=== PATIENT | female | born 1985 | race Caucasian/White ===

== ENCOUNTER 2024-10-28 16:31 | Inpatient (IN) | payer OTHER ==
[~2024-10-28] VITALS: Ht 157.5 cm; Wt 85.5 kg
[2024-10-28 17:56] LABS: BASOPHILS # (AUTO) 0.1 (0.0-0.1); EOSINOPHILS # (AUTO) 0.1 (0.0-0.4); EOSINOPHILS % 0.7 % (0.0-6.0); HEMATOCRIT 34.4 % (34.2-44.1); HEMOGLOBIN 10.6 g/dL (12.0-16.0); LYMPHOCYTES # (AUTO) 2.3 (1.0-3.2); LYMPHOCYTES % 20.4 % (18.0-39.1); MEAN CORPUSCULAR HEMOGLOBIN 21.9 pg (28-32); MEAN CORPUSCULAR HGB CONC 30.8 g/dL (31-35); MEAN CORPUSCULAR VOLUME 70.9 fL (81-99); MONOCYTES % 8.9 % (4.4-11.3); NEUTROPHILS # (AUTO) 7.8 (2.1-6.9); NEUTROPHILS % 68.7 % (38.7-80.0); PLATELET COUNT 438 x10e3/uL (140-360); RED BLOOD COUNT 4.85 x10e6/uL (3.6-5.1); RED CELL DISTRIBUTION WIDTH 24.7 % (11.7-14.4); WHITE BLOOD COUNT 11.35 x10e3/uL (4.8-10.8)
[2024-10-28 18:40] LABS: ALBUMIN 4.3 g/dL (3.5-5.0); ALBUMIN/GLOBULIN RATIO 1.2 (0.8-2.0); ANION GAP 18.6 mmol/L (8-16); BILIRUBIN,TOTAL 0.4 mg/dL (0.2-1.2); CALCIUM 9.3 mg/dL (8.4-10.2); CREATININE, SERUM 0.78 mg/dL (0.57-1.11); MAGNESIUM 2.1 MG/DL (1.3-2.1); POTASSIUM 3.6 mmol/L (3.5-5.1); TOTAL PROTEIN 7.8 g/dL (6.5-8.1)
[2024-10-28] MEDS: Morphine 4mg INJECTION 4 MG/ML INJ IV STA (18:51)
[2024-10-28] MEDS: SODIUM CHLORIDE 0.9% 1000ML 1,000 ML IV STA (18:51)
[2024-10-28] MEDS: ONDANSETRON HCL INJ 2MG/ML 2ML 2 MG/ML VIAL IV STA (18:52)
[2024-10-28 18:53] VITALS: PULSE 64; RESP 18; TEMP 99.2
[2024-10-28] MEDS ORDERED: IOPAMIDOL 370 MG/ML 100 ML INFUS..BTL INJ ONE (18:54)
[2024-10-28 19:11] LABS: INR 1.03; PARTIAL THROMBOPLASTIN TIME 27.1 seconds (23.8-35.5); PROTHROMBIN TIME 14.1 seconds (11.9-14.5)
[2024-10-28 19:26] LABS: CLARITY,URINE SL CLOUDY (CLEAR); COLOR,URINE YELLOW (YELLOW); LEUKOCYTE ESTERASE ,URINE NEGATIVE (NEGATIVE); NITRITE,URINE NEGATIVE (NEGATIVE); PH,URINE 5.5 (5 - 7)
[2024-10-28 19:27] LABS: BILIRUBIN,URINE SMALL (NEGATIVE); GLUCOSE, URINE NEGATIVE (NEGATIVE); KETONES,URINE 2+ (NEGATIVE); PROTEIN,URINE DIPSTICK 1+ (NEGATIVE); URINE UROBILINOGEN 0.2 mg/dL (0.2 - 1)
[2024-10-28 19:42] LABS: AMORPHOUS SEDIMENT,URINE MODERATE; BACTERIA,URINE FEW /HPF; EPITHELIAL CELLS,URINE MODERATE /LPF; RBC,URINE 0-5 /HPF (0-5)
[2024-10-28] MEDS: SODIUM CHLORIDE 0.9% 1000ML 1,000 ML IV SCH (21:38)
[2024-10-28 22:07] VITALS: BP 147/77; PULSE 65; RESP 16; TEMP 97.9; O2SAT 100
[2024-10-28] MEDS ORDERED: PREGABALIN75 MG PO (22:59)
[2024-10-28] MEDS ORDERED: GABAPENTIN100 MG PO (22:59)
[2024-10-28] MEDS ORDERED: PANTOPRAZOLE SO40 MG PO (22:59)
[2024-10-28] MEDS ORDERED: TIZANIDINE HCL4 MG PO (22:59)
[2024-10-28] MEDS ORDERED: KETOROLAC TROME10 MG PO (22:59)
[2024-10-28] MEDS ORDERED: SUCRALFATE1 GM PO (22:59)
[2024-10-28] MEDS ORDERED: AMBIEN10 MG PO (22:59)
[2024-10-28] MEDS ORDERED: ONDANSETRON ODT4 MG PO (22:59)
[2024-10-28] MEDS ORDERED: ACETAMINOPHEN/COD PO (22:59)
[2024-10-28] MEDS ORDERED: HYDROCODON-ACE1 EA12 PO (22:59)
[2024-10-28 23:05] VITALS: BP 147/77; PULSE 65; RESP 16; TEMP 97.9; O2SAT 100
[2024-10-28 23:10] VITALS: BP 147/77; PULSE 65; RESP 16; TEMP 97.9; O2SAT 100
[2024-10-28] MEDS: ONDANSETRON HCL INJ 2MG/ML 2ML 2 MG/ML VIAL IV PRN (23:18)
[2024-10-28] MEDS: Morphine 4mg INJECTION 4 MG/ML INJ IV PRN (23:19)
[2024-10-29 05:29] VITALS: BP 128/73; PULSE 51; RESP 18; TEMP 98.1; O2SAT 97
[2024-10-29 06:18] LABS: BASOPHILS # (AUTO) 0.1 (0.0-0.1); BASOPHILS % 1.7 % (0.0-1.0); EOSINOPHILS # (AUTO) 0.4 (0.0-0.4); EOSINOPHILS % 5.1 % (0.0-6.0); HEMATOCRIT 32.1 % (34.2-44.1); HEMOGLOBIN 9.7 g/dL (12.0-16.0); LYMPHOCYTES # (AUTO) 1.7 (1.0-3.2); LYMPHOCYTES % 20.8 % (18.0-39.1); MEAN CORPUSCULAR HEMOGLOBIN 22.5 pg (28-32); MEAN CORPUSCULAR HGB CONC 30.2 g/dL (31-35); MEAN CORPUSCULAR VOLUME 74.3 fL (81-99); MONOCYTES # (AUTO) 0.8 (0.2-0.8); MONOCYTES % 9.5 % (4.4-11.3); NEUTROPHILS # (AUTO) 5.1 (2.1-6.9); NEUTROPHILS % 62.7 % (38.7-80.0); PLATELET COUNT 273 x10e3/uL (140-360); RED BLOOD COUNT 4.32 x10e6/uL (3.6-5.1); RED CELL DISTRIBUTION WIDTH 25.1 % (11.7-14.4); WHITE BLOOD COUNT 8.08 x10e3/uL (4.8-10.8)
[2024-10-29 06:49] LABS: ALBUMIN 3.6 g/dL (3.5-5.0); ALBUMIN/GLOBULIN RATIO 1.3 (0.8-2.0); ANION GAP 13.3 mmol/L (8-16); BILIRUBIN,TOTAL 0.3 mg/dL (0.2-1.2); CALCIUM 8.2 mg/dL (8.4-10.2); CREATININE, SERUM 0.79 mg/dL (0.57-1.11); TOTAL PROTEIN 6.4 g/dL (6.5-8.1)
[2024-10-29 06:54] LABS: POTASSIUM 3.3 mmol/L (3.5-5.1)
[2024-10-29 07:20] VITALS: BP 143/82; PULSE 56; RESP 17; TEMP 98.2; O2SAT 100
[2024-10-29 08:00] VITALS: BP 128/73; PULSE 51; RESP 18; TEMP 98.1; O2SAT 97
[2024-10-29] MEDS: METOCLOPRAMIDE HCL 10 MG/2ML VIAL IV SCH (09:56)
[2024-10-29 10:18] LABS: % IRON SATURATION 7 % (15-50); IRON 27 ug/dL (50-170); TOTAL IRON BINDING CAPACITY 385 ug/dL (261-478); TRANSFERRIN 275 mg/dL (180-382)
[2024-10-29 10:36] LABS: PLATELET ESTIMATE ADEQUATE; PLATELET MORPHOLOGY COMMENT NORMAL; RBC MORPHOLOGY COMMENT NORMAL
[2024-10-29 11:29] VITALS: BP 132/66; PULSE 56; RESP 16; TEMP 98.1; O2SAT 100
[2024-10-29] MEDS: ONDANSETRON HCL INJ 2MG/ML 2ML 2 MG/ML VIAL IV PRN (12:14)
[2024-10-29 15:22] VITALS: BP 126/73; PULSE 58; RESP 18; TEMP 97.4; O2SAT 100
[2024-10-29] MEDS: KETOROLAC TROMETHAMINE 30 MG/ML VIAL IV PRN (18:09)
[2024-10-29 20:00] VITALS: BP 136/73; PULSE 60; RESP 20; TEMP 98; O2SAT 99
[2024-10-30] VITALS (8 sets, daily range): BP systolic 135–151; BP diastolic 71–77; PULSE 52–68; RESP 15–20; TEMP 97.9–98.6; O2SAT 99–100
[2024-10-30] MEDS: MECLIZINE HCL 12.5 MG TAB PO STA (00:36)
[2024-10-30] MEDS: DICYCLOMINE HCL 20 MG TAB PO STA (00:36)
[2024-10-30 05:42] LABS: BASOPHILS # (AUTO) 0.2 (0.0-0.1); EOSINOPHILS # (AUTO) 0.5 (0.0-0.4); EOSINOPHILS % 6.7 % (0.0-6.0); HEMATOCRIT 32.7 % (34.2-44.1); HEMOGLOBIN 9.7 g/dL (12.0-16.0); LYMPHOCYTES # (AUTO) 1.6 (1.0-3.2); LYMPHOCYTES % 20.8 % (18.0-39.1); MEAN CORPUSCULAR HEMOGLOBIN 22.1 pg (28-32); MEAN CORPUSCULAR HGB CONC 29.7 g/dL (31-35); MEAN CORPUSCULAR VOLUME 74.7 fL (81-99); MONOCYTES # (AUTO) 0.7 (0.2-0.8); MONOCYTES % 8.8 % (4.4-11.3); NEUTROPHILS # (AUTO) 4.7 (2.1-6.9); NEUTROPHILS % 61.4 % (38.7-80.0); PLATELET COUNT 345 x10e3/uL (140-360); RED BLOOD COUNT 4.38 x10e6/uL (3.6-5.1); RED CELL DISTRIBUTION WIDTH 24.2 % (11.7-14.4); WHITE BLOOD COUNT 7.59 x10e3/uL (4.8-10.8)
[2024-10-30 06:23] LABS: ALBUMIN 3.8 g/dL (3.5-5.0); ALBUMIN/GLOBULIN RATIO 1.4 (0.8-2.0); ANION GAP 14.2 mmol/L (8-16); BILIRUBIN,TOTAL 0.3 mg/dL (0.2-1.2); CALCIUM 8.3 mg/dL (8.4-10.2); CREATININE, SERUM 0.76 mg/dL (0.57-1.11); POTASSIUM 3.2 mmol/L (3.5-5.1); TOTAL PROTEIN 6.6 g/dL (6.5-8.1)
[2024-10-30] MEDS: DICYCLOMINE HCL 20 MG TAB PO SCH (08:21)
[2024-10-30] MEDS: IRON SUCROSE 100 MG in SODIUM CHLORIDE 0.9% 100 ML IV SCH (10:30)
[2024-10-30 12:03] LABS: HYPOCHROMASIA MODERATE; PLATELET ESTIMATE ADEQUATE; PLATELET MORPHOLOGY COMMENT NORMAL
[2024-10-30 12:06] LABS: MICROCYTOSIS MODERATE; RBC MORPHOLOGY COMMENT ABNORMAL
[2024-10-30] MEDS: CYANOCOBALAMIN INJ 1,000 MCG/ML VIAL IM ONE ×2 (14:25→16:18)
[2024-10-30] MEDS: DONNATAL/LIDOCAINE/MAALOX 30 ML SUSP PO PRN (16:18)
[2024-10-30 20:57] LABS: WBC,FECAL (FECAL LACTOFERRIN) NEGATIVE (NEGATIVE)
[2024-10-30 21:15] LABS: CDIFF AG QUIK CHEK NEGATIVE (NEGATIVE); CDIFF TOX QUIK CHEK NEGATIVE (NEGATIVE)
[2024-10-31] VITALS (9 sets, daily range): BP systolic 120–151; BP diastolic 51–80; PULSE 60–75; RESP 18–19; TEMP 97.3–98.9; O2SAT 97–100
[2024-10-31] MEDS: SUCRALFATE 1 GM TAB PO SCH (09:31)
[2024-10-31] MEDS: CYANOCOBALAMIN INJ 1,000 MCG/ML VIAL IM SCH (09:31)
[2024-10-31 09:41] LABS: C-REACTIVE PROTEIN 3 mg/L (0-10)
[2024-11-01 06:01] LABS: BASOPHILS # (AUTO) 0.1 (0.0-0.1); BASOPHILS % 1.8 % (0.0-1.0); EOSINOPHILS # (AUTO) 0.6 (0.0-0.4); EOSINOPHILS % 7.8 % (0.0-6.0); HEMATOCRIT 33.8 % (34.2-44.1); HEMOGLOBIN 10.1 g/dL (12.0-16.0); LYMPHOCYTES # (AUTO) 1.9 (1.0-3.2); LYMPHOCYTES % 24.4 % (18.0-39.1); MEAN CORPUSCULAR HEMOGLOBIN 22.2 pg (28-32); MEAN CORPUSCULAR HGB CONC 29.9 g/dL (31-35); MEAN CORPUSCULAR VOLUME 74.3 fL (81-99); MONOCYTES # (AUTO) 0.9 (0.2-0.8); MONOCYTES % 11.3 % (4.4-11.3); NEUTROPHILS # (AUTO) 4.3 (2.1-6.9); NEUTROPHILS % 54.3 % (38.7-80.0); PLATELET COUNT 344 x10e3/uL (140-360); RED BLOOD COUNT 4.55 x10e6/uL (3.6-5.1); RED CELL DISTRIBUTION WIDTH 24.3 % (11.7-14.4); WHITE BLOOD COUNT 7.82 x10e3/uL (4.8-10.8)
[2024-11-01 06:38] LABS: ALBUMIN 3.8 g/dL (3.5-5.0); ALBUMIN/GLOBULIN RATIO 1.5 (0.8-2.0); ANION GAP 12.5 mmol/L (8-16); BILIRUBIN,TOTAL 0.2 mg/dL (0.2-1.2); CALCIUM 8.7 mg/dL (8.4-10.2); CREATININE, SERUM 0.73 mg/dL (0.57-1.11); POTASSIUM 3.5 mmol/L (3.5-5.1); TOTAL PROTEIN 6.4 g/dL (6.5-8.1)
[2024-11-01 08:43] VITALS: BP 139/71; PULSE 52; RESP 20; TEMP 98.2; O2SAT 100
[2024-11-01 09:00] VITALS: BP 139/71; PULSE 52; RESP 20; TEMP 98.2; O2SAT 100
[2024-11-01 12:27] VITALS: BP 141/73; PULSE 56; RESP 20; TEMP 98.3; O2SAT 97
[2024-11-01 15:53] VITALS: BP 122/75; PULSE 64; RESP 18; TEMP 98.1; O2SAT 99
[2024-11-01 20:00] VITALS: BP 146/84; PULSE 60; RESP 20; TEMP 98; O2SAT 96
[2024-11-02] VITALS: BP 140/95; PULSE 84; RESP 20; TEMP 98.6; O2SAT 98
[2024-11-02 04:00] VITALS: BP 153/62; PULSE 76; RESP 20; TEMP 98; O2SAT 99
[2024-11-02 07:46] VITALS: BP 138/57; PULSE 55; RESP 17; TEMP 97.9; O2SAT 98
[2024-11-02 09:00] VITALS: BP 138/57; PULSE 55; RESP 17; TEMP 97.9; O2SAT 98
[2024-11-04 08:12] LABS: ENDOMYSIAL ANTIBODIES, IGA Negative (Negative)
[2024-11-04 11:35] LABS: IMMUNOGLOBULIN A 240 mg/dL (87-352); TISSUE TRANSGLUTAMINASE IGA AB 2 U/mL (0-3)
== END 2024-11-02 11:04 | disposition home or self-care (01) | DRG 392 ==
LOC: ER 17:59 → ERHOLD 21:09 → MED/SURG2 22:01
PROVIDERS: ADMIT Internal Medicine; ATTEND Internal Medicine
DX: K29.00 Acute gastritis without bleeding (principal); N83.201 Unspecified ovarian cyst, right side; R11.2 Nausea with vomiting, unspecified; K21.00 Gastro-esophageal reflux disease with esophagitis, without bleeding; Z90.710 Acquired absence of both cervix and uterus; R19.7 Diarrhea, unspecified
CPT/HCPCS: 36415; 71045; 74177; 76705; 76856; 78227; 80053; 81001; 82607; 82746; 82784; 83516; 83540; 83630; 83690; 83735; 83993; 84466; 85025; 85045; 85610; 85730; 86140; 86256; 87040; 87045; 87086; 87177; 87324; 87449; 99252; 99284; A9537; J1756; J1885; J2270; J2405; J2470; J2543; J2765; J3420; J7030; J7050; Q9967